=== PATIENT | male | born 1960 | race Caucasian/White ===

== ENCOUNTER 2022-06-15 19:01 | Emergency (ER) | payer OTHER ==
[~2022-06-15 19:01] MED LIST: ALLERGY RELIEF10 MG PO; BENAZEPRIL HCL20 MG PO; CARDIZEM CD120 MG PO; CARDURA2 MG PO; CIPRO250 M1 PO; CRESTOR40 MG PO; ELIQUIS5 MG PO; GLIMEPIRIDE1 MG PO; METFORMIN HCL500 M2 PO; TENORMIN50 MG PO; TRIAMTERENE-HC1 EACH PO
[2022-06-15 19:46] LABS: BASOPHIL 0.5 % (0-2); HCT 42.2 % (42.0-52.0); MCH 31.5 pg (25.0-31.0); MCHC 35.5 g/dL (32.0-36.0); MCV 88.7 fL (78.0-100.0); MONOCYTE 7.9 % (0-12); NEUTROPHIL 67.1 % (41-80); NRBC 0; PLT 255 K/uL (150-400); RBC 4.76 M/uL (4.70-6.00); RDW 13.4 % (11.5-14.0); WBC 7.9 K/uL (4.0-10.5)
[2022-06-15 19:47] LABS: ALBUMIN 3.4 g/dL (3.4-5.0); BILIRUBIN - TOTAL 0.6 mg/dL (0.2-1.0); BUN/CREAT RATIO (CALC) 13.9 RATIO; CREATININE 1.51 mg/dL (0.67-1.17); GLOBULIN (CALCULATION) 3.2 g/dL; MAGNESIUM 1.3 mg/dL (1.8-2.4); TOTAL PROTEIN 6.6 g/dL (6.4-8.2)
[2022-06-15 20:26] LABS: CORONAVIRUS 2019 SARS-COV-2 NEGATIVE (NEGATIVE); INFLUENZA A NAA NEGATIVE (NEGATIVE)
== END 2022-06-15 23:21 | disposition home or self-care (01) ==
LOC: FER 19:01
PROVIDERS: Internal Medicine
DX: E87.6 Hypokalemia (principal); E87.1 Hypo-osmolality and hyponatremia; E83.42 Hypomagnesemia; E11.9 Type 2 diabetes mellitus without complications; Z20.822 Contact with and (suspected) exposure to COVID-19; Z88.8 Allergy status to other drugs, medicaments and biological substances; Z79.84 Long term (current) use of oral hypoglycemic drugs
CPT/HCPCS: 36415; 80053; 83735; 83880; 84484; 85025; 93005; J3475; J7030; J7050; U0002